=== PATIENT | male | born 1975 | race Caucasian/White ===

== ENCOUNTER 2020-05-28 12:59 | Emergency (ER) | payer MEDICARE, MEDICAID ==
[2020-05-28 14:07] LABS: ABSOLUTE EOSINOPHILS # (AUTO) 0.1 10^3/uL (0.0-0.6); ABSOLUTE LYMPHOCYTES (AUTO) 2.3 10^3/uL (0.5-4.7); ABSOLUTE MONOCYTES (AUTO) 0.7 10^3/uL (0.1-1.4); BASOPHILS % (AUTO) 0.5 % (0-2); EOSINOPHILS % (AUTO) 1.4 % (0-6); HEMATOCRIT 45.1 % (37.9-51.0); HEMOGLOBIN 16.1 g/dL (13.5-17.0); MEAN CORPUSCULAR HEMOGLOBIN 31.4 pg (27.0-33.4); MEAN CORPUSCULAR HGB CONC 35.6 g/dL (32.0-36.0); MEAN CORPUSCULAR VOLUME 88 fl (80-97); MONOCYTES % (AUTO) 7.4 % (3-13); PLATELET COUNT 191 10^3/uL (150-450); RED BLOOD COUNT 5.12 10^6/uL (4.35-5.55); SEGMENTED NEUTROPHILS % (AUTO) 65.7 % (42-78); TOTAL CELLS COUNTED % (AUTO) 100 %; WHITE BLOOD COUNT 9.2 10^3/uL (4.0-10.5)
[2020-05-28 14:13] LABS: ALKALINE PHOSPHATASE 113 U/L (38-126); ANION GAP 11 (5-19); ASPARTATE AMINO TRANSFERASE 38 U/L (17-59); BILIRUBIN,TOTAL 0.6 mg/dL (0.2-1.3); BLOOD UREA NITROGEN 16 mg/dL (7-20); CALCIUM 9.7 mg/dL (8.4-10.2); CARBON DIOXIDE 26 mmol/L (22-30); CHLORIDE 104 mmol/L (98-107); GLUCOSE 88 mg/dL (75-110); POTASSIUM 4.3 mmol/L (3.6-5.0); TOTAL PROTEIN 7.7 g/dL (6.3-8.2)
[2020-05-28 14:15] LABS: ALCOHOL < 10 mg/dL (NONE DETECTED)
[2020-05-28 14:23] LABS: URINE AMPHETAMINES SCREEN NEGATIVE; URINE BARBITURATES SCREEN NEGATIVE; URINE BENZODIAZEPINES SCREEN NEGATIVE; URINE COCAINE SCREEN NEGATIVE; URINE MARIJUANA (THC) SCREEN NEGATIVE; URINE METHADONE SCREEN NEGATIVE; URINE PHENCYCLIDINE SCREEN NEGATIVE
[2020-05-28] MEDS ORDERED: NORMAL SALINE 1000 ML 1,000 ML IV ONE (14:42)
[2020-05-28 16:11] LABS: APPEARANCE,URINE TURBID; BILIRUBIN,URINE NEGATIVE (NEGATIVE); CALCIUM OXALATE CRYSTALS,URINE FEW /HPF; COLOR,URINE YELLOW; GLUCOSE, URINE NEGATIVE (NEGATIVE); KETONES,URINE NEGATIVE (NEGATIVE); PROTEIN,URINE NEGATIVE (NEGATIVE); URINE SPECIFIC GRAVITY 1.018; UROBILINOGEN,URINE NEGATIVE mg/dL (<2.0)
--- NOTE | 2020-05-28 16:15 | ER Document Report ---
ED Dizziness/Weakness - General Chief Complaint: Dizziness Stated Complaint: HEADACHE,DIARRHEA,LIGHTHEADED Time Seen by Provider: 05/28/20 13:08 Primary Care Provider: DILSHAD ROSS MD [Primary Care Provider] - Follow up as needed Mode of Arrival: Ambulatory Information source: Patient Notes: 45-year-old man presents to the emergency department with a complaint of dizziness. Apparently he has experienced feeling of "I am going to pass out" episodically for the past 4 days. He has history of psychiatric illness, reports Hx Schizophrenia and is taking his medications. He complains that he feels like he is being poisoned. Asked why he thinks that way, he notes his clothes smell funny. He denies any known toxin ingestion., but has only been at home - Related Data Allergies/Adverse Reactions: Penicillins Allergy (Verified 05/21/13 21:02) Past Medical History - Social History Smoking Status: Current Every Day Smoker Chew tobacco use (# tins/day): No Frequency of alcohol use: Occasional Drug Abuse: Marijuana Family History: Other Psychiatric Medical History: Reports: Hx Schizophrenia - Immunizations Hx Diphtheria, Pertussis, Tetanus Vaccination: Yes Review of Systems - Review of Systems Notes: Constitutional: Negative for fever. HENT: Negative for sore throat. Eyes: Negative for visual changes. Cardiovascular: Negative for chest pain. Respiratory: Negative for shortness of breath. Gastrointestinal: Negative for abdominal pain, vomiting or diarrhea. Genitourinary: Negative for dysuria. Musculoskeletal: Negative for back pain. Skin: Negative for rash. Neurological: + Dizziness, + lightheadedness. 10 point ROS negative except as marked above and in HPI. Physical Exam - Vital signs Vitals: Temp Pulse Resp BP Pulse Ox 98.4 F 111 H 16 145/83 H 94 05/28/20 13:06 05/28/20 13:06 05/28/20 13:06 05/28/20 13:06 05/28/20 13:06 - Notes Notes: PHYSICAL EXAMINATION: Physical Exam: General: Well-nourished well-developed 45-year-old man in no acute distress HEENT: NC/AT, pupils equal round and reactive to light, MM moist,nares clear, oropharynx clear, airway patent, + lateral nystagmus Neck: supple, no adenopathy, no masses. Good range of motion Lungs: Good air movement no wheezes rales or rhonchi CVS: Regular rate and rhythm no murmur gallop or rub Abdomen: Soft, active, nontender, no masses, no hepatosplenomegaly Ext: No edema, clubbing or cyanosis. Neuro: Alert and responsive, moving all 4 extremities on command, cranial nerves intact, no focal findings Skin: Intact no open lesions, no rash PSYCH: Normal mood, normal affect. Course - Re-evaluation Re-evalutation: Differential diagnosis Dehydration, benign postural vertigo, electrolyte imbalance, infection, medication related symptoms. 05/28/20 16:31 Review of laboratory data and EKG are normal test. Patient with significant p sychiatric illness and exam revealing lateral nystagmus, difficult to discern whether he has true vertigo versus symptoms which may be related to volume input. Creatinine, BUN, electrolytes sodium potassium and chloride are all within the range of normal. Patient will be given a short course of meclizine with the expectation that if his symptoms are correlated to the nystagmus it may improve things. Also encouraged him to follow-up with his usual physician regarding thoughts of being poisoned. 2 - Vital Signs Vital signs: Temp Pulse Resp BP Pulse Ox 98.4 F 63 16 130/95 H 99 05/28/20 13:06 05/28/20 14:36 05/28/20 14:36 05/28/20 14:36 05/28/20 14:36 - Laboratory Result Diagrams: 05/28/20 13:25 05/28/20 13:25 - EKG Interpretation by Ia Rate: Normal - EKG interpreted by Dr. Asher: Normal sinus rhythm, rate 96, QT interval normal, normal axis deviation, no LVH, no acute ST or T wave abnormalities, no ischemic findings Interpretation: Normal EKG. Discharge - Discharge Clinical Impression: Vertigo Schizophrenia Qualifiers: Schizophrenia type: unspecified Qualified Code(s): F20.9 - Schizophrenia, unspecified Condition: Good Disposition: HOME, SELF-CARE Instructions: Dizziness ([facility]), Meclizine ([facility]), Vertigo ([facility]) Additional Instructions: You were seen and evaluated in the emergency department for dizziness and lightheadedness. Your symptoms are suggestive of vertigo with physical findings of lateral eye movement disorder. Please use the medication meclizine 1 tablet every 8 hours as prescribed push fluids and follow-up as needed. If your symptoms are worsening or if you have other concerns you may return to the emergency department for further evaluation and treatment. HOME CARE INSTRUCTIONS & INFORMATION: Thank you for choosing us for your medical needs. We hope you're satisfied with the care you received. After you leave, you must properly care for your problem and, at the same time, observe its progress. Any condition can change. Some illnesses can change rapidly over hours or days. If your condition worsens, return to the Emergency Department or see your physician promptly. ABOUT YOUR X-RAYS AND EKG'S: If you had an EKG or X-rays taken, they have been read by the Emergency Physician. The X-rays and EKG's will also be read by a Radiologist or Client Development Manager within 24 hours. If discrepancies are noted, you will be notified by telephone. Please be certain the ED has a correct telephone number & address where you can be reached. Also, realize that some fractures or abnormalities do not show up on initial X-rays. If your symptoms continue, see your physician. ABOUT YOUR LABORATORY TEST: If you had laboratory tests, the results have been reviewed by the Emergency Physician. Some test results (for example cultures) may not be available for several days. You will be contacted if any test result shows you need additional treatment. Please be certain the ED has a correct telephone number and address where you can be reached. ABOUT YOUR MEDICATIONS: You will receive instructions on how to take your medicine on the prescription label you receive. Additional information may be provided by the Pharmacy. If you have questions afterwards, call the ED for clarification or further instructions. Some prescribed medications may cause dr owsiness. Do not perform tasks such as driving a car or operating machinery without consulting your Pharmacist. If you feel you need a refill of pain medication, your condition will need re-evaluation. Please do not call for a refill of any medication. ABOUT YOUR SIGNATURE: Signature of this document acknowledges to followin. Understanding that you received emergency treatment and that you may be released before al medical problems are known or treated. Please be certain the ED has a correct phone number & address where you can be reached. 2. Acknowledgement that you will arrange for follow-up care as recommended. 3. Authorization for the Emergency Physician to provide information to your follow-up Physician in order to maximize your care. AT ANY TIME, IF YOUR SYMPTOMS CHANGE SIGNIFICANTLY OR WORSEN OR YOU DEVELOP NEW SYMPTOMS, RETURN TO THE EMERGENCY DEPARTMENT IMMEDIATELY FOR RE-EVALUATION. OUR GOAL IS TO PROVIDE EXCELLENT MEDICAL CARE! WE HOPE THAT WE HAVE MET YOUR EXPECTATIONS DURING YOUR EMERGENCY DEPARTMENT VISIT AND THAT YOU FEEL YOU HAVE RECEIVED EXCELLENT CARE! Prescriptions: Meclizine HCl [Antivert 25 mg Tablet] 25 mg PO TID PRN #21 tablet PRN Reason: Dizziness Referrals: DILSHAD ROSS MD [Primary Care Provider] - Follow up as needed
[2020-05-28 16:55] VITALS: BP 123/82
--- NOTE | 2020-05-28 19:33 | EKG REPORT ---
SEVERITY:- NORMAL ECG - SINUS RHYTHM : Confirmed by: Carlos Granger 28-May-2020 19:31:41
== END 2020-05-28 16:55 | disposition home or self-care (01) ==
LOC: ER 12:59
DX: F20.9 Schizophrenia, unspecified (principal); R42 Dizziness and giddiness; R51 Headache; R19.7 Diarrhea, unspecified; F17.200 Nicotine dependence, unspecified, uncomplicated
CPT/HCPCS: 93005; 99284; 96360; 36415; 80307 ×2; 83735; 85025; 80053; 81001; 93010; J7030

== ENCOUNTER 2020-07-10 02:44 | Emergency (ER) | payer MEDICARE, MEDICAID ==
[2020-07-10 02:56] VITALS: BP 152/90
--- NOTE | 2020-07-10 03:16 | ER Document Report ---
ED General - General Chief Complaint: Psych Problem Stated Complaint: PSYCH Time Seen by Provider: 07/10/20 03:04 Primary Care Provider: DILSHAD ROSS MD [Primary Care Provider] - Follow up as needed - HPI Patient complains to provider of: screening Notes: patient presents requesting a haldol shot he is currently on abilify and compliant w/ that he is not currently taking haldol in pill or injection form he does follow w/ psychiatry as an outpt he denies any ongoing hallucinations, SI/HI tendencies, or mood lability when asked why he needs a haldol shot, he states "i guess i don't." - Related Data Allergies/Adverse Reactions: Penicillins Allergy (Verified 05/21/13 21:02) Past Medical History - Social History Smoking Status: Current Every Day Smoker Chew tobacco use (# tins/day): No Frequency of alcohol use: None Drug Abuse: None Family History: Other Patient has homicidal ideation: No Psychiatric Medical History: Reports: Hx Schizophrenia - Immunizations Hx Diphtheria, Pertussis, Tetanus Vaccination: Yes Review of Systems - Review of Systems Constitutional: No symptoms reported EENT: No symptoms reported Cardiovascular: No symptoms reported Respiratory: No symptoms reported Gastrointestinal: No symptoms reported Genitourinary: No symptoms reported Male Genitourinary: No symptoms reported Musculoskeletal: No symptoms reported Skin: No symptoms reported Hematologic/Lymphatic: No symptoms reported Neurological/Psychological: No symptoms reported Physical Exam - Vital signs Vitals: Temp Pulse Resp BP Pulse Ox 98.1 F 116 H 20 152/90 H 95 07/10/20 02:54 07/10/20 02:54 07/10/20 02:54 07/10/20 02:54 07/10/20 02:54 Interpretation: Normal - General General appearance: Appears well, Alert - HEENT Head: Normocephalic, Atraumatic Eyes: Normal Pupils: PERRL - Respiratory Respiratory status: No respiratory distress Chest status: Nontender Breath sounds: Normal Chest palpation: Normal - Cardiovascular Rhythm: Regular Heart sounds: Normal auscultation Murmur: No - Abdominal Inspection: Normal Distension: No distension Bowel sounds: Normal Tenderness: Nontender Organomegaly: No organomegaly - Back Back: Normal, Nontender - Extremities General upper extremity: Normal inspection, Nontender, Normal color, Normal ROM, Normal temperature General lower extremity: Normal inspection, Nontender, Normal color, Normal ROM, Normal temperature, Normal weight bearing. No: Kala's sign - Neurological Neuro grossly intact: Yes Cognition: Normal Orientation: AAOx4 [place] Coma Scale Eye Opening: Spontaneous [place] Coma Scale Verbal: Oriented [place] Coma Scale Motor: Obeys Commands [place] Coma Scale Total: 15 Speech: Normal Motor strength normal: LUE, RUE, LLE, RLE Sensory: Normal - Psychological Associated symptoms: Normal mood. No: Agitated, Angry, Anxious, Auditory hallucinations, Manic, Paranoid, Psychomotor agitation, Visual hallucinations - Skin Skin Temperature: Warm Skin Moisture: Dry Skin Color: Normal Course - Re-evaluation Re-evalutation: 07/10/20 03:12 patient appears to be interacting normally here and does not meet ivc criteria i do not feel that he needs a dose of haldol in any form given that he is interacting normally and cannot give me a reason that he would require medication he and i both agree that he should follow up with his psychiatrist as an outpatient for further care and consideration of medication addition/adjustments - Vital Signs Vital signs: Temp Pulse Resp BP Pulse Ox 98.1 F 116 H 20 152/90 H 95 07/10/20 02:54 07/10/20 02:54 07/10/20 02:54 07/10/20 02:54 07/10/20 02:54 Discharge - Discharge Clinical Impression: Schizophrenia Qualifiers: Schizophrenia type: unspecified Qualified Code(s): F20.9 - Schizophrenia, unspecified Condition: Stable Disposition: HOME, SELF-CARE Instructions: Schizophrenia ([facility]) Additional Instructions: Please follow up with your psychiatrist as an outpatient for medication addition/adjustment decisions Please return to the ED if your symptoms should change or worsen in any way Continue taking your abilify as you have been directed to do so by your psychiatrist until you are able to discuss your medications further with your psychiatrist Referrals: DILSHAD ROSS MD [Primary Care Provider] - Follow up as needed
== END 2020-07-10 03:47 | disposition home or self-care (01) ==
LOC: ER 02:44
DX: F20.9 Schizophrenia, unspecified (principal); Z79.899 Other long term (current) drug therapy; F17.200 Nicotine dependence, unspecified, uncomplicated; Z88.0 Allergy status to penicillin
CPT/HCPCS: 99281